=== PATIENT | female | born 2000 | race African-American/Black ===

== ENCOUNTER 2024-05-07 14:25 | Emergency (ER) | payer OTHER ==
[~2024-05-07] VITALS: Ht 165.1 cm; Wt 70.0 kg
[2024-05-07 14:33] VITALS: O2SAT 100
[2024-05-07] MEDS: ACETAMINOPHEN 325MG TABLET PO ONE (15:30)
[2024-05-07] MEDS ORDERED: LIDO700A15 TP (16:11)
[2024-05-07] MEDS ORDERED: NAPR-1176 MT (16:11)
[2024-05-07 16:31] VITALS: BP 135/78; PULSE 82; RESP 18; TEMP 37.00296; O2SAT 100
== END 2024-05-07 16:33 | disposition home or self-care (01) ==
LOC: ER 14:25
DX: M25.562 Pain in left knee (principal); W18.30XA Fall on same level, unspecified, initial encounter; Y93.89 Activity, other specified; Y92.89 Other specified places as the place of occurrence of the external cause; Y99.8 Other external cause status
CPT/HCPCS: 73562; 99283

== ENCOUNTER 2025-01-03 13:18 | Emergency (ER) | payer OTHER ==
[~2025-01-03] VITALS: Ht 162.6 cm; Wt 70.0 kg
[~2025-01-03 13:18] MED LIST: LIDO-53 TP; NAPR-1176 MT
[2025-01-03 13:20] VITALS: O2SAT 100
[2025-01-03 13:43] VITALS: BP 118/69; PULSE 61; RESP 16; TEMP 36.8; O2SAT 100
[2025-01-03] MEDS ORDERED: BROM118S47 PO (14:39)
== END 2025-01-03 14:44 | disposition home or self-care (01) ==
LOC: ER 13:18
DX: B34.9 Viral infection, unspecified (principal); Z79.1 Long term (current) use of non-steroidal anti-inflammatories (NSAID)
CPT/HCPCS: 99282

== ENCOUNTER 2025-07-07 17:15 | Emergency (ER) | payer MEDICAID, OTHER ==
[~2025-07-07] VITALS: Ht 162.6 cm; Wt 70.0 kg
[~2025-07-07 17:15] MED LIST changes: +BROM118S47 PO
[2025-07-07 17:26] VITALS: O2SAT 100
[2025-07-07] MEDS: TETANUS, DIPHTHERIA, PERTUSSIS VAC/PF 0.5ML (>10YR OLD) IM ONE (18:45)
[2025-07-07] MEDS: LIDOCAINE HCL/EPINEPHRINE 1%-EPI 1:100,000 20ML VIAL INFIL ONE (19:11)
[2025-07-07] MEDS ORDERED: BO1 TP (20:33)
[2025-07-07 20:57] VITALS: BP 117/66; PULSE 62; RESP 18; TEMP 36.8; O2SAT 100
== END 2025-07-07 20:58 | disposition home or self-care (01) ==
LOC: ER 17:15
DX: S01.81XA Laceration without foreign body of other part of head, initial encounter (principal); Y09 Assault by unspecified means; Y93.89 Activity, other specified; Y92.89 Other specified places as the place of occurrence of the external cause; Y99.8 Other external cause status
CPT/HCPCS: 90715; 12013; 90471; 99283; J2004; Z7610

== ENCOUNTER 2025-07-15 08:14 | Emergency (ER) | payer OTHER ==
[~2025-07-15] VITALS: Ht 162.6 cm; Wt 70.0 kg
[~2025-07-15 08:14] MED LIST changes: +BO1 TP
[2025-07-15 08:23] VITALS: O2SAT 100
[2025-07-15 09:08] VITALS: BP 105/60; PULSE 62; RESP 17; TEMP 37.1; O2SAT 100
== END 2025-07-15 09:09 | disposition home or self-care (01) ==
LOC: ER 08:14
DX: S01.81XD Laceration without foreign body of other part of head, subsequent encounter (principal)
CPT/HCPCS: 99282; Z7610